=== PATIENT | male | born 1980 | race Hispanic/Latino ===

== ENCOUNTER 2017-02-22 13:48 | Emergency (ER) | payer OTHER ==
[~2017-02-22] VITALS: Ht 170.2 cm; Wt 88.6 kg
[2017-02-22 14:02] VITALS: BP 128/84; PULSE 63; RESP 16; O2SAT 100
--- NOTE | 2017-02-22 14:17 | ED.REPORT ---
HPI-Abd Pain M Under 40 Date of Service Feb 22, 2017 ED Provider: Matt Calle DO The pt is a 36 y/o male presenting to the ED complaining of R sided abdominal pain. He has also vomited three times since 0700 this morning. The pain begins on the R sided of his abdomen and radiates through to his back and is better when he lays still. The pt also reports cycling all day yesterday and had a hamburger for dinner last night. Denies hematuria, dysuria, testicular swelling , groin pain, or diarrhea. Nursing Notes Stated Complaint: RIGHT SIDE ABDOMINAL PAIN Chief Complaint: Male Abdominal Pain Nursing Notes Reviewed: Yes Allergies: Coded Allergies: Penicillins (Verified Allergy, Severe, Rash,Itching,, 02/22/17) bee venom protein (honey bee) (Verified Allergy, Severe, swelling, 02/22/17 ) Scheduled PRN Naproxen (Naproxen) 500 Mg Tab 500 MG PO BID PRN PRN For Pain Ondansetron ODT (Zofran ODT) 4 Mg Tablet 4 MG PO Q4H PRN PRN For Nausea General Time Seen by MD: 14:16 Chief Complaint Abdominal pain Hx Obtained From: Patient Sudden in Onset?: Yes Onset Occurred: 5 - 8 hours ago Symptom Duration: Since onset Recent Healthcare: No recent doctor visit, No recent hospitalization Similar Sx Previous: No Past Medical History Past Medical History None reported Past Surgical History None reported Smoking History Never Smoker Social History Alcohol Use: Denies alcohol use Drug Use: Denies drug use Ambulatory Status Independent Review of Systems Denies groin pain; GI: Reports: Abdominal pain (R sided ), Vomiting, Denies: Diarrhea Male: Denies Dysuria, Denies Hematuria, Denies Testicular swelling Complete sys rev & neg: except as marked. Physical Exam Initial Vital Signs Vital Signs (First) Date Time Temp Pulse Resp B/P Pulse Ox O2 Delivery O2 Flow Rate FiO2 02/22/17 14:02 36.1 63 16 128/84 100 Room Air Initial VS: Reviewed Head / Eyes: Atraumatic, Normocephalic, PERRL ENT: Mucous membranes moist, Conjunctiva normal, No scleral icterus Neck: Supple, Non-tender, Full range of motion Extremities: Vascular intact, Neuro intact, No swelling, No tenderness Psychiatric: Mood/affect normal, Behavior normal, Normal thought content General/Constitutional: Awake, Alert, No acute distress Respiratory / Chest: Atraumatic, Breath sounds NL, Breath sounds = bilat, No respiratory distress Cardiovascular: Heart rate NL, Regular rhythm, Heart sounds NL Abdomen: Soft Tenderness/Guarding/Rebound: Positive: Tender RLQ... (Mild), Tender flank R Back: Atraumatic, Full range of motion Skin: Atraumatic, Color NL, No rash, Warm, Dry, Intact Interpretation & Diagnostics Urine dip showed no signs of infection Lab Results Interpretation Result Diagram: 02/22/17 1417 02/22/17 1417 Test 02/22/17 14:17 White Blood Count 10.6th/mm3 (3.8-10.1) Red Blood Count 4.71mil/mm3 (4.40-5.80) Hemoglobin 14.2g/dL (13.8-17.2) Hematocrit 41.0% (41.0-50.0) Mean Corpuscular Volume 87.0fL (81-100) Mean Corpuscular Hemoglobin 30.1pg (27.0-35.0) Mean Corpuscular Hemoglobin Concent 34.6% (32.0-37.0) Red Cell Distribution Width 12.8% (12.3-15.4) Platelet Count 309bil/L (150-400) Neutrophils (%) (Auto) 91.0% (40-74) Lymphocytes (%) (Auto) 6.1% (14-46) Monocytes (%) (Auto) 2.5% (4-12) Eosinophils (%) (Auto) 0% (0-5) Basophils (%) (Auto) 0.2% (0-3) Sodium Level 139mEq/L (134-144) Potassium Level 4.2mEq/L (3.5-5.2) Chloride Level 104mEq/L (97-108) Carbon Dioxide Level 23mmol/L (18-29) Blood Urea Nitrogen 14mg/dL (6-20) Creatinine 1.11mg/dL (0.76-1.27) Estimat Glomerular Filtration Rate 80mL/min (>59) Glucose Level 158mg/dL (60-99) Calcium Level 9.2mg/dL (8.5-10.1) Magnesium Level 1.8mg/dL (1.6-2.6) Total Bilirubin 0.2mg/dL (0.0-1.2) Aspartate Amino Transf (AST/SGOT) 23U/L (0-50) Alanine Aminotransferase (ALT/SGPT) 34U/L (0-44) Alkaline Phosphatase 94U/L (25-150) Total Protein 7.2g/dL (6.4-8.4) Albumin 4.1g/dL (3.4-5.0) Lipase 24U/L (13-60) CT Abd / Pelvis Interpretation IMPRESSION: 1. 4 mm diameter distal right ureteral calculus, associated with mild right hydronephrosis, as well as a delayed nephrogram, indicating diminished perfusion. 2. Nonobstructing right renal calculi. 3. Cholelithiasis. 4. Normal appendix. Dictated by: Randee Sarmiento M.D. on 02/22/2017 at 15:33 Approved by: Randee Sarmiento M.D. on 02/22/2017 at 15:35 Study type: Abdom CT oral contrast Interpretation / Wet Read by: Interpret - Radiologist Re-Eval/Medical Decision Med Decision/Clinical Course Findings of nephrolithiasis without signs of UTI. Pain resolved after Toradol. Patient will be discharged. Return and follow-up precautions given. Re-Evaluation/Progress : Time of Eval: 16:30 Re-Evaluation/Progress Note: Pt rechecked. Informed pt of plan for treatment. Pt understands and agrees with plan for treatment. F/U instructions and RTER warnings given. All questions addressed. Counseled Regarding: Diagnosis, Lab results, Need for follow-up, When/why to return to ED Patient Discharge & Departure Primary Impression: Nephrolithiasis Disposition: Home Discharge Condition All VS Reviewed: Yes Condition: Stable Additional Instructions: Your CAT scan shows that you have a kidney stone. This will likely pass over the next week. Use naproxen for pain as well as Zofran for nausea. Strain your urine at home to collect the kidney stone as it passes. Call urology for follow-up in the next week or so. Return to ER as needed for intractable pain or vomiting, high fever, or other concerns. Referrals: [facility] Scribe Attestation Portions of this note were transcribed by Braden Soto. I, Dr. Calle personally performed the history, physical exam and medical decision-making; I reviewed and confirmed the accuracy of the information in the transcribed note. Signed by : Alee Ayon, 02/22/17 and [id number]. copies to: [facility] Matt Calle DO Feb 22, 2017 14:17 Braden Soto Feb 22, 2017 15:06
[2017-02-22] MEDS ORDERED: 0.9% Sodium Chloride 1,000 ML IV ONE (14:26)
[2017-02-22] MEDS ORDERED: Ketorolac 15 mg/mL Inj IVPUSH ONE (14:30)
[2017-02-22] MEDS ORDERED: Ondansetron 2 mg/mL 2 mL Inj IVPUSH PRN (14:30)
[2017-02-22 14:36] LABS: BASOPHILS % (AUTO) 0.2 % (0-3); EOSINOPHILS % (AUTO) 0 % (0-5); MONOCYTES % (AUTO) 2.5 % (4-12); Mean Corpuscular Hemoglobin 30.1 pg (27.0-35.0); Platelet Count 309 bil/L (150-400)
[2017-02-22 14:53] LABS: Magnesium 1.8 mg/dL (1.6-2.6)
--- NOTE | 2017-02-22 15:36 | DRSVH ---
PROCEDURE: CT ABDOMEN AND PELVIS WITH CONTRAST ([id number]) INDICATIONS: rlq/flank pain TECHNIQUE: After the administration of intravenous contrast, 5 mm thick sections acquired from the diaphragm to the symphysis. 5 mm coronal and sagittal reformats were acquired. For radiation dose reduction, the following was used: automated exposure control, adjustment of mA and/or kV according to patient siz e. COMPARISON: None. FINDINGS: Image quality: Excellent. ABDOMEN: Lung bases: Lung bases are clear. Heart size is normal. Solid organs: Liver and spleen are normal in size and enhancement. Gallbladder demonstrates multipl e calculi within its lumen. Biliary system is non dilated. Pancreas enhances normally. No adrenal nodules. There is mild right renal enlargement. There is a slightly delayed right nephrogram. There i s mild right hydronephrosis and mild right perinephric fat stranding. There is a nonobstructing 2 mm diameter calculus within the right interpolar kidney anteriorly. Nonobstructing 2 mm diameter calculu s within the superior pole right kidney. Left kidney is within normal limits. There is mild diffuse r ight ureteral dilatation. There is a 4 mm diameter calculus at the right ureterovesical junction. Peritoneum and bowel: Bowel loops demonstrate normal wall thickness and caliber. No free fluid or a ir. Normal appendix. Nodes and vessels: No retroperitoneal or mesenteric adenopathy by size criteria. Aorta and inferior vena cava are normal in size. Miscellaneous: No ventral hernias. PELVIS: Genitourinary: Bladder wall thickness is normal. Miscellaneous: No inguinal hernias or adenopathy. Bones: No suspicious bony lesions. No vertebral body compression fractures. IMPRESSION: 1. 4 mm diameter distal right ureteral calculus, associated with mild right hydronephrosis, as well a s a delayed nephrogram, indicating diminished perfusion. 2. Nonobstructing right renal calculi. 3. Cholelithiasis. 4. Normal appendix. Dictated by: Randee Sarmiento M.D. on 02/22/2017 at 15:33 Approved by: Randee Sarmiento M.D. on 02/22/2017 at 15:35
[2017-02-22] MEDS ORDERED: NPR500T PO (16:25)
[2017-02-22] MEDS ORDERED: ONDA4TAB9 PO (16:25)
[2017-02-22 17:13] VITALS: BP 121/72; PULSE 68; RESP 16; O2SAT 99
[2017-02-22 17:14] VITALS: BP 121/72; PULSE 68; RESP 16; O2SAT 99
== END 2017-02-22 17:15 | disposition home or self-care (01) ==
LOC: SED 13:48
DX: N20.0 Calculus of kidney (principal); Z88.0 Allergy status to penicillin; Z91.030 Bee allergy status
CPT/HCPCS: 36415; 74177; 80053; 83690; 83735; 85025; 96361; 96374; 96375; 99285; J1885; J2270; J2405; J7030; Q9967